=== PATIENT | female | born 1985 | race Caucasian/White ===

== ENCOUNTER 2020-03-03 15:50 | Emergency (ER) | payer BC, OTHER ==
[~2020-03-03] VITALS: Ht 160 cm; Wt 81.7 kg
--- NOTE | ~2020-03-03 | EMS ---
[place] [address] EMS Patient Care Report Name: JO VASQUEZ Room #: PRE M.RSumeet#: [id number] Admission: Attend Phys: Discharge: Date of : 83 Report #: [id number] THIS REPORT FOR: //name// Report Transmitted: 03/03/2020 15:21 EMS Care Summary [place], [place]/[facility] Incident [id number] @ 03/03/2020 15:19 Incident Location [address] [place] [address] Patient ADAM VASQUEZ Female, 35 Years 1985 Patient Address [address] [place] [address] Patient History Other, Patient Medications Hydroxyzine, Chief Complaint alt loc Disposition Transported No Lights/[place] Dispatch Reason Convulsions/Seizure Transported To [facility] Narrative pts family stated that pt normally operates without deficit. 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 pt found sitting upright on couch and alert. pt alert tracked movement and followed some commands. pt presented highly anxious. pt could only speak in one word sentences. pt repeated the same word over and over. pt would act as if she would comprehend ems but she could not form whole sentences as if a possible [address] [address] EMS Patient Care Report Name: JO VASQUEZ Room #: PRE Lana#: [id number] Admission: Attend Phys: Discharge: Date of : [birth year] Report #: [id number] expressive dysphasia. pts speech was articulate and not slurred. pt stood and walked to ems cot. pt was transferred onto ems cot and was secured in a semi fowlers position without incident. pt was loaded into ambulance. pt continued her highly anxious dysphasia. iv access was sought after but was not attempted due to no available vasculature. pt was transported emergent to [facility]. 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 transport was uneventful and no changes were noted. pt care was transferred to appropriate staff and ems goes back in service. Initial Vitals @15:37P: 100,R: 20,BP: 160/80,Pain: 0/10,GCS: 15,Glucose: 143,SpO2: 98,Revised Trauma: 12, @15:42P: 100,R: 20,BP: 170/70,GCS: 15,SpO2: 98,Revised Trauma: 12, Assessments @15:33MENTAL:No Abnormalities,SKIN:No Abnormalities,HEENT:Head/Face: No Abnormalities,Eyes: No Abnormalities,Neck/Airway: No Abnormalities,LUNG SOUNDS:General: No Abnormalities,Left Upper: No Abnormalities,Right Upper: No Abnormalities,Left Lower: No Abnormalities,Right Lower: No Abnormalities,ABDOMEN:General: No Abnormalities,Left Upper: No Abnormalities,Right Upper: No Abnormalities,Left Lower: No Abnormalities,Right Lower: No Abnormalities,PELVIS//GI:No Abnormalities,EXTREMITIES:Left Arm: No Abnormalities,Right Arm: No Abnormalities,Left Leg: No Abnormalities,Right Leg: No Abnormalities,PULSE:NEURO:No Abnormalities,@15:45MENTAL:No Abnormalities,SKIN:No Abnormalities,HEENT:Head/Face: No Abnormalities,Eyes: No Abnormalities,Neck/Airway: No Abnormalities,LUNG SOUNDS:General: No Abnormalities,Left Upper: No Abnormalities,Right Upper: No Abnormalities,Left Lower: No Abnormalities,Right Lower: No Abnormalities,ABDOMEN:General: No Abnormalities,Left Upper: No Abnormalities,Right Upper: No Abnormalities,Left Lower: No Abnormalities,Right Lower: No Abnormalities,PELVIS//GI:No Abnormalities,EXTREMITIES:Left Arm: No Abnormalities,Right Arm: No Abnormalities,Left Leg: No Abnormalities,Right Leg: No Abnormalities,PULSE:NEURO:No Abnormalities, Impression Altered Mental Status Procedures @15:33ALS AssessmentResponse: UnchangedSucceeded Timeline 15:17,Call Received 15:17,Dispatch Notified 15:19,Dispatched 15:19,En Route 15:32,On Scene [address] [address] EMS Patient Care Report Name: JO VASQUEZ Room #: PRE M.R.#: [id number] Admission: Attend Phys: Discharge: Date of : 83 Report #: [id number] 15:33,At Patient 15:33,ALS Assessment,Response: UnchangedSucceeded, 15:37,BP: 160/80 M,PULSE: 100,RR: 20 R,SPO2: 98 Ox,ETCO2: ,B,PAIN: 0,GCS: 15, 15:38,Depart Scene 15:42,BP: 170/70 M,PULSE: 100,RR: 20 R,SPO2: 98 Ox,ETCO2: ,BG: ,PAIN: ,GCS: 15, 15:46,At Destination 16:16,Call Closed Disclaimer v1.1 Copyright 2020 [employer] This EMS Care Summary contains data elements from the applicable legal record (which may be displayed differently). It is designed to provide pertinent information for the following purposes: continuity of care, clinical quality, and state data reporting. The complete legal record is available to ED staff and administrators of the receiving hospital in [employer] Patient Tracker. All data is provided "as is."
[2020-03-03 16:25] LABS: ABSOLUTE NEUTROPHILS 11.5 thou/uL (1.4-8.2); BASOPHILS 0.9 % (0.0-2.0); EOSINOPHILS 0.2 % (0.0-3.0); HEMATOCRIT 44.3 % (37.0-47.0); HEMOGLOBIN 15.1 gm/dL (12.0-15.0); LYMPHOCYTES 17.6 % (24.0-44.0); MCH 30.7 pg (26.0-34.0); MCHC 34.1 g/dL (28.0-37.0); MCV 90.1 fL (80.0-100.0); PLATELET COUNT 364 thou/uL (150-400); POLYS 77.3 % (36.0-66.0); RBC 4.92 mil/uL (4.20-5.00); WBC 14.9 thou/uL (4.0-11.0)
[2020-03-03 16:39] LABS: ANION GAP 16 mmol/L (7-16); BUN 8 mg/dL (7-18); CALCIUM 9.3 mg/dL (8.5-10.1); CHLORIDE 101 mmol/L (98-107); CO2 22 mmol/L (21-32); CREATININE 1.1 mg/dL (0.6-1.0); GLUCOSE 134 mg/dL (74-106); POTASSIUM 3.7 mmol/L (3.5-5.1); SODIUM 139 mmol/L (136-145)
[2020-03-03 16:45] LABS: ALBUMIN 4.2 g/dL (3.4-5.0); SGOT 37 U/L (15-37); SGPT 48 U/L (30-65); TOTAL BILIRUBIN 0.4 mg/dL (0.2-1.0); TOTAL PROTEIN 8.8 g/dL (6.4-8.2)
[2020-03-03 17:12] LABS: SALICYLATE 3.1 mg/dL (2.8-20.0)
[2020-03-03 17:30] LABS: URINE BILIRUBIN NEGATIVE (Negative); URINE BLOOD TRACE (Negative); URINE CLARITY CLEAR; URINE COLOR YELLOW; URINE GLUCOSE-RANDOM* NEGATIVE (Negative); URINE KETONES NEGATIVE (Negative); URINE LEUKOCYTES-REFLEX NEGATIVE (Negative); URINE NITRITE-REFLEX NEGATIVE (Negative); URINE PROTEIN (DIPSTICK) NEGATIVE (Negative); URINE UROBILINOGEN 0.2 E.U./dl (0.2-1.0)
[2020-03-03] MEDS ORDERED: SINGULAIR 10 MG10 M1 PO (17:37)
[2020-03-03] MEDS ORDERED: DESYREL150 MG PO (17:37)
[2020-03-03] MEDS ORDERED: ADIPEX-P37.5 MG PO (17:39)
[2020-03-03 17:41] LABS: AMP/METHAMP Negative (Negative); BARBITURATES Negative (Negative); BENZODIAZEPINES POSITIVE (Negative); COCAINE Negative (Negative); METHADONE Negative (Negative); OPIATES Negative (Negative); PCP Negative (Negative)
[2020-03-03] MEDS ORDERED: HYDROXYZINE HCL25 M2 PO (17:55)
[2020-03-03] MEDS ORDERED: AZELASTINE137 MCG/0. NASAL (17:55)
[2020-03-03] MEDS ORDERED: XANAX1 MG PO (17:56)
[2020-03-03 21:19] VITALS: BP 148/97
--- NOTE | 2020-03-04 12:21 | EKG ---
[facility] [place] [address] ELECTROCARDIOGRAM REPORT Name: ADAM VASQUEZ Room #: [facility]#: [id number] Admission: 03/03/20 Attend Phys: Discharge: 03/03/20 Date of : 83 Report #: [id number] THIS REPORT FOR: cc: JEFFREY Thompson family physician/PCP JEFFREY Thompson family physician/PCP Jaya Sommer MD [facility] THIS REPORT FOR: //name// [facility] ED Test Date: 2020-03-03 Test Time: 17:08:54 Pat Name: ADAM VASQUEZ Department: Room: Gender: F Formulator: : 1985 Requested By: Eric Noland Order Number: [id number] MD: Jaya Sommer Measurements Intervals [place] Rate: 107 P: 50 WA: 142 QRS: -16 QRSD: 78 T: 3 QT: 331 QTc: 442 Interpretive Statements Sinus tachycardia Atrial premature complex Borderline left axis deviation Low voltage, extremity leads Poor R-Wave progression V1-3 No previous ECG available for comparison Electronically Signed On 03-04-2020 12:20:51 CDT by Jaya Sommer [email or web address] <ELECTRONICALLY SIGNED> By: Jaya Sommer MD, FACC 03/04/20 1220 1708 1708 Jaya Sommer MD, [facility] /EPI
== END 2020-03-03 21:15 | disposition short-term general hospital (02) ==
LOC: ER 15:50
PROVIDERS: Nurse Practitioner
DX: R41.82 Altered mental status, unspecified (principal); Z88.2 Allergy status to sulfonamides; Z79.899 Other long term (current) drug therapy